=== PATIENT | male | born 1990 | race Caucasian/White ===

== ENCOUNTER → 2017-11-11 | Outpatient (CLI) | payer OTHER | LOC: M WUC 14:29 | DX: M25.572 Pain in left ankle and joints of left foot (principal) | CPT/HCPCS: 73610 ==

== ENCOUNTER → 2022-04-14 | Outpatient (REF) | payer OTHER | LOC: M LAB REF 13:15 | PROVIDERS: ATTEND Internal Medicine | DX: F41.0 Panic disorder [episodic paroxysmal anxiety] (principal); K58.2 Mixed irritable bowel syndrome ==